=== PATIENT | female | born 1950 | race Caucasian/White ===

== ENCOUNTER 2022-07-23 04:48 | Inpatient (IN) | payer MEDICAID, OTHER ==
[~2022-07-23] VITALS: Ht 154.9 cm; Wt 74.6 kg
[2022-07-23 05:57] LABS: BASOPHILS % 0.4 % (0.0-2.0); EOSINOPHILS % 0.1 % (0.0-5.0); HEMATOCRIT. 34.7 % (36.0-48.0); HEMOGLOBIN. 11.7 g/dL (12.0-16.0); LYMPHOCYTES % 18.7 % (20.0-50.0); MEAN CORPUSCULAR HEMOGLOBIN 31.3 pg (28.0-32.0); MEAN PLATELET VOLUME 9.1 fl (7.4-10.4); MONOCYTES % 10.3 % (2.0-8.0); NEUTROPHILS % 70.5 % (40.0-76.0); PLATELET 419 x1000/uL (130-400); RED BLOOD CELL COUNT 3.73 mill/uL (4.2-5.4)
[2022-07-23 06:02] LABS: CHLORIDE 109 mEq/L (98-107); INR 0.9; PROTHROMBIN TIME 9.8 sec (9.6-11.0)
[2022-07-23 06:12] LABS: CREATINE KINASE 578 IU/L (26-192); ETHANOL BLOOD < 10 mg/dL
[2022-07-23 06:30] LABS: CLARITY URINE CLEAR (CLEAR); COLOR URINE YELLOW (YELLOW); KETONES URINE NEGATIVE (NEGATIVE); LEUKOCYTE ESTERASE URINE 1+ (NEGATIVE); NITRITE URINE NEGATIVE (NEGATIVE); OCCULT BLOOD URINE NEGATIVE (NEGATIVE); PH URINE 5.5 (4.5-8.0); PROTEIN URINE NEGATIVE (NEGATIVE); SPECIFIC GRAVITY URINE 1.017 (1.005-1.030); UROBILINOGEN URINE 0.2 E.U./dL (0.2-1.0)
[2022-07-23] MEDS ORDERED: ASPIRIN 325MG EC TABLET PO ONE (06:30)
[2022-07-23] MEDS ORDERED: SODIUM CHLORIDE 0.9% 500 ML IV SCH (06:30)
[2022-07-23] MEDS ORDERED: IOHEXOL-350 100 ML BOTTLE ONE (06:36)
[2022-07-23 07:00] LABS: *AMPHETAMINES SCREEN URINE NEGATIVE (NEGATIVE); *BARBITURATES SCREEN URINE NEGATIVE (NEGATIVE); *BENZODIAZEPINES SCREEN URINE NEGATIVE (NEGATIVE); *COCAINE SCREEN URINE NEGATIVE (NEGATIVE); CANNABINOID URINE SCREEN NEGATIVE (NEGATIVE); METHADONE URINE SCREEN NEGATIVE (NEGATIVE); OPIATES URINE SCREEN NEGATIVE (NEGATIVE); PHENCYCLIDINE URINE SCREEN NEGATIVE (NEGATIVE)
[2022-07-23] MEDS ORDERED: METOCLOPRAMIDE HCL 10MG/2ML VIAL IV ONE (07:45)
[2022-07-23] MEDS ORDERED: SODIUM CHLORIDE 0.9% 250 ML IV ONE (12:30)
[2022-07-23] MEDS ORDERED: ONDANSETRON HCL 4MG/2ML INJ IV PRN (12:45)
[2022-07-23 15:45] VITALS: BP 131/49
[2022-07-23 15:50] VITALS: BP 131/49
[2022-07-23] MEDS: ACETAMINOPHEN 325MG TABLET PO PRN (17:22)
[2022-07-23] MEDS: ENOXAPARIN 40MG/0.4ML SYR SUBCUT SCH (17:22)
[2022-07-23] MEDS ORDERED: MIDODRINE HCL 2.5MG TABLET PO NR (18:44)
[2022-07-23] MEDS ORDERED: SODIUM CHLORIDE 0.9% 500 ML IV ONE (18:45)
[2022-07-23] MEDS ORDERED: MIDODRINE HCL 5MG TABLET PO SCH (19:00)
[2022-07-23 20:00] VITALS: BP 92/38
[2022-07-23] MEDS: CEFTRIAXONE 1GM PREMIX 50 ML IV SCH (20:00)
[2022-07-23] MEDS: DEXT 5%/0.45% NACL 1000ML 1,000 ML IV SCH (21:36)
[2022-07-23] MEDS ORDERED: DEXTROSE 50% WATER 50ML SYRINGE IV PRN (23:15)
[2022-07-24] VITALS: BP 123/45
[2022-07-24 04:00] VITALS: BP 95/48
[2022-07-24 04:16] LABS: BG BASE EXCESS -2.1 mmol/L (-2.0-2.0); BG CARBOXYHEMOGLOBIN 0.1 % (0.5-1.5); BG DEOXYHEMOGLOBIN 3.8 % (0.0-5.0); BG FRACTION INSPIRED OXYGEN 21; BG HCO3 ACT 22.8 mmol/L (22.0-26.0); BG METHEMOGLOBIN 0.1 % (0.0-1.5); BG OXYGEN SATURATION 96.2 % (92.0-98.5); BG PCO2 39.5 mmHg (35.0-45.0); BG PH 7.379 (7.350-7.450); BG PO2 85.4 mmHg (75.0-100.0); BG SAMPLE SITE RIGHT RADIAL; BG TOTAL HEMOGLOBIN 11.3 g/dL (12.0-18.0); BG VENT MODE ROOM AIR
[2022-07-24] MEDS ORDERED: BLOOD SUGAR DIAGNOSTIC STRIP TEST SCH (06:40)
[2022-07-24] MEDS ORDERED: INSULIN LISPRO 100 UNITS/ML SUBCUT SCH (07:10)
[2022-07-24 08:00] VITALS: BP 121/43
[2022-07-24] MEDS: DEXT 5%/0.45% NACL 1000ML 1,000 ML IV SCH ×2 (08:20→21:23)
[2022-07-24] MEDS: ASPIRIN 81MG TABLET PO SCH (09:28)
[2022-07-24] MEDS: MIDODRINE HCL 5MG TABLET PO SCH ×3 (09:30→16:52)
[2022-07-24] MEDS ORDERED: DEXTROSE 50% WATER 50ML SYRINGE IV PRN (10:45)
[2022-07-24] MEDS: ACETAMINOPHEN 325MG TABLET PO PRN (10:59)
[2022-07-24] MEDS: BLOOD SUGAR DIAGNOSTIC STRIP TEST SCH ×3 (11:39→21:22)
[2022-07-24] MEDS: INSULIN LISPRO 100 UNITS/ML SUBCUT SCH ×3 (11:39→21:24)
[2022-07-24 12:00] VITALS: BP 111/38
[2022-07-24] MEDS: POLYVINYL ALCOHOL OPHTH DROPS 15ML LEFTEYE SCH ×3 (13:43→21:23)
[2022-07-24] MEDS: ENOXAPARIN 40MG/0.4ML SYR SUBCUT SCH (13:44)
[2022-07-24 16:00] VITALS: BP 135/40
[2022-07-24 20:00] VITALS: BP 111/47
[2022-07-24] MEDS: CEFTRIAXONE 1GM PREMIX 50 ML IV SCH (21:23)
[2022-07-24 21:58] LABS: BASOPHILS % 1.2 % (0.0-2.0); HEMATOCRIT. 30.4 % (36.0-48.0); HEMOGLOBIN. 10.5 g/dL (12.0-16.0); LYMPHOCYTES % 32.9 % (20.0-50.0); MEAN CORPUSCULAR VOLUME 92.8 fL (81.0-99.0); MEAN PLATELET VOLUME 8.7 fl (7.4-10.4); MONOCYTES % 11.6 % (2.0-8.0); NEUTROPHILS % 53.3 % (40.0-76.0); PLATELET 373 x1000/uL (130-400); RED BLOOD CELL COUNT 3.27 mill/uL (4.2-5.4); RED CELL DISTRIBUTION WIDTH 15.8 % (11.6-14.6)
[2022-07-24 22:02] LABS: CHLORIDE 106 mEq/L (98-107)
[2022-07-25] VITALS: BP 125/49
[2022-07-25] MEDS: POLYVINYL ALCOHOL OPHTH DROPS 15ML LEFTEYE SCH ×6 (00:36→21:28)
[2022-07-25 04:00] VITALS: BP 104/56
[2022-07-25] MEDS: ACETAMINOPHEN 325MG TABLET PO PRN (05:15)
[2022-07-25] MEDS: INSULIN LISPRO 100 UNITS/ML SUBCUT SCH ×4 (06:02→21:32)
[2022-07-25] MEDS: BLOOD SUGAR DIAGNOSTIC STRIP TEST SCH ×4 (06:02→21:33)
[2022-07-25 07:05] LABS: BASOPHILS % 0.9 % (0.0-2.0); EOSINOPHILS % 1.3 % (0.0-5.0); HEMATOCRIT. 29.9 % (36.0-48.0); HEMOGLOBIN. 10.4 g/dL (12.0-16.0); LYMPHOCYTES % 30.4 % (20.0-50.0); MEAN CORPUSCULAR VOLUME 91.7 fL (81.0-99.0); MEAN PLATELET VOLUME 9.7 fl (7.4-10.4); MONOCYTES % 11.5 % (2.0-8.0); NEUTROPHILS % 55.9 % (40.0-76.0); PLATELET 294 x1000/uL (130-400); RED BLOOD CELL COUNT 3.26 mill/uL (4.2-5.4); RED CELL DISTRIBUTION WIDTH 15.9 % (11.6-14.6)
[2022-07-25 07:35] LABS: CHLORIDE 107 mEq/L (98-107)
[2022-07-25 07:51] LABS: HDL CHOLESTEROL 57 mg/dL (40-59); LDL CHOLESTEROL 123 mg/dL (5-100)
[2022-07-25 08:00] VITALS: BP 126/40
[2022-07-25] MEDS: CLOPIDOGREL 75MG TABLET PO SCH (08:54)
[2022-07-25] MEDS: ASPIRIN 81MG TABLET PO SCH (08:54)
[2022-07-25] MEDS: MIDODRINE HCL 5MG TABLET PO SCH ×3 (08:54→17:02)
[2022-07-25] MEDS ORDERED: POTASSIUM CHLORIDE 20MEQ TABLET SR PO NR (11:30)
[2022-07-25 11:59] VITALS: BP 119/48
[2022-07-25] MEDS: DEXT 5%/0.45% NACL 1000ML 1,000 ML IV SCH (12:03)
[2022-07-25] MEDS: ENOXAPARIN 40MG/0.4ML SYR SUBCUT SCH (12:03)
[2022-07-25 16:00] VITALS: BP 128/47
[2022-07-25] MEDS ORDERED: LACTULOSE 20G/30ML UDC PO PRN (17:15)
[2022-07-25 20:00] VITALS: BP 126/41
[2022-07-25] MEDS: CEFTRIAXONE 1GM PREMIX 50 ML IV SCH (21:27)
[2022-07-26] VITALS: BP 126/66
[2022-07-26] MEDS: POLYVINYL ALCOHOL OPHTH DROPS 15ML LEFTEYE SCH ×4 (00:31→13:44)
[2022-07-26] MEDS: DEXT 5%/0.45% NACL 1000ML 1,000 ML IV SCH ×2 (00:31→13:45)
[2022-07-26 04:00] VITALS: BP 139/45
[2022-07-26] MEDS: BLOOD SUGAR DIAGNOSTIC STRIP TEST SCH ×2 (06:09→11:40)
[2022-07-26] MEDS: INSULIN LISPRO 100 UNITS/ML SUBCUT SCH ×2 (06:09→13:43)
[2022-07-26 08:00] VITALS: BP_SYST 104; BP_SYST 126; BP_DIAS 59; BP_DIAS 66
[2022-07-26] MEDS: MIDODRINE HCL 5MG TABLET PO SCH ×2 (09:00→13:00)
[2022-07-26] MEDS: CLOPIDOGREL 75MG TABLET PO SCH (09:24)
[2022-07-26] MEDS: ASPIRIN 81MG TABLET PO SCH (09:24)
[2022-07-26 12:00] VITALS: BP 118/68
[2022-07-26] MEDS: ENOXAPARIN 40MG/0.4ML SYR SUBCUT SCH (13:41)
[2022-07-26] MEDS ORDERED: MIDO5TAB4 PO (14:07)
[2022-07-26] MEDS ORDERED: ASPI-1160 PO (14:07)
[2022-07-26] MEDS ORDERED: CLOP-31 PO (14:07)
[2022-07-26 16:49] VITALS: BP 118/68
== END 2022-07-26 17:50 | disposition home health service (06) | DRG 45 ==
LOC: ER 04:48 → EDBEDREQSVC 12:20 → EDBEDREQ 12:20 → EDBEDREQTM 12:20 → EDBEDREQ 12:22 → EDBEDREQTM 12:22 → ENRESERV 14:01 → 7EST 15:21
PROVIDERS: ADMIT Internal Medicine; ATTEND Internal Medicine
DX: I63.81 Other cerebral infarction due to occlusion or stenosis of small artery (principal); I21.4 Non-ST elevation (NSTEMI) myocardial infarction; E44.0 Moderate protein-calorie malnutrition; M33.20 Polymyositis, organ involvement unspecified; I10 Essential (primary) hypertension; N39.0 Urinary tract infection, site not specified; I65.23 Occlusion and stenosis of bilateral carotid arteries; E78.5 Hyperlipidemia, unspecified; E11.9 Type 2 diabetes mellitus without complications; R29.709 NIHSS score 9; G51.0 Bell's palsy; R47.01 Aphasia; Z68.31 Body mass index [BMI] 31.0-31.9, adult; Z88.8 Allergy status to other drugs, medicaments and biological substances; Z87.442 Personal history of urinary calculi
CPT/HCPCS: 36415; 36600; 70496; 70498; 70551; 71045; 80048; 80053; 80061; 80305; 80320; 81003; 82140; 82375; 82550; 82805; 82962; 83036; 83605; 84443; 84484; 85025; 92610; 93005; 93306; 97162; 97166; 99291; C1893; J0696; J1650; J1815; J2765; Q9967; G0480

== ENCOUNTER 2022-08-03 13:34 | Inpatient (IN) | payer MEDICAID ==
[~2022-08-03] VITALS: Ht 152.4 cm; Wt 69.1 kg
[~2022-08-03 13:34] MED LIST: ASPI-1160 PO; CLOP-31 PO; MIDO5TAB4 PO
[2022-08-03] MEDS ORDERED: SODIUM CHLORIDE 0.9% 1,000 ML IV ONE (15:30)
[2022-08-03 15:45] LABS: BASOPHILS % 0.7 % (0.0-2.0); EOSINOPHILS % 0.4 % (0.0-5.0); HEMOGLOBIN. 12.2 g/dL (12.0-16.0); LYMPHOCYTES % 28.9 % (20.0-50.0); MEAN CORPUSCULAR HEMOGLOBIN 31.5 pg (28.0-32.0); MEAN PLATELET VOLUME 8.3 fl (7.4-10.4); MONOCYTES % 8.7 % (2.0-8.0); NEUTROPHILS % 61.3 % (40.0-76.0); PLATELET 445 x1000/uL (130-400); RED BLOOD CELL COUNT 3.88 mill/uL (4.2-5.4); RED CELL DISTRIBUTION WIDTH 16.4 % (11.6-14.6)
[2022-08-03 16:01] LABS: CHLORIDE 99 mEq/L (98-107)
[2022-08-03] MEDS ORDERED: ASPIRIN 81MG TABLET PO ONE (16:45)
[2022-08-03 17:44] LABS: CLARITY URINE CLEAR (CLEAR); COLOR URINE YELLOW (YELLOW); KETONES URINE NEGATIVE (NEGATIVE); LEUKOCYTE ESTERASE URINE TRACE (NEGATIVE); NITRITE URINE NEGATIVE (NEGATIVE); OCCULT BLOOD URINE NEGATIVE (NEGATIVE); PROTEIN URINE NEGATIVE (NEGATIVE); UROBILINOGEN URINE 0.2 E.U./dL (0.2-1.0)
[2022-08-03] MEDS ORDERED: CEFTRIAXONE 1GM PREMIX 50 ML IV ONE (18:00)
[2022-08-03] MEDS ORDERED: SODIUM CHLORIDE 0.9% 1000ML BAG (SEPSIS BOLUS) IV ONE (20:00)
[2022-08-03 23:30] VITALS: BP 116/41
[2022-08-04] MEDS ORDERED: ACETAMINOPHEN 325MG TABLET PO PRN (00:15)
[2022-08-04] MEDS ORDERED: DEXTROSE 50% WATER 50ML SYRINGE IV PRN (00:15)
[2022-08-04] MEDS ORDERED: POLYVINYL ALCOHOL OPHTH DROPS 15ML LEFTEYE PRN (00:15)
[2022-08-04] MEDS ORDERED: NON FORMULARY PATIENT HOME MED XX SCH (00:15)
[2022-08-04] MEDS ORDERED: OMEP20CA14 PO (00:28)
[2022-08-04] MEDS ORDERED: SULF1TAB44 PO (00:28)
[2022-08-04] MEDS ORDERED: LISI40TA13 MT (00:28)
[2022-08-04] MEDS ORDERED: LEVVL SQ (00:28)
[2022-08-04] MEDS ORDERED: AMLO5TAB88 MT (00:28)
[2022-08-04] MEDS ORDERED: INSU100I41 SUBCUT (00:28)
[2022-08-04] MEDS ORDERED: LISI20TA31 MT (00:28)
[2022-08-04] MEDS ORDERED: METF-874 MT (00:28)
[2022-08-04] MEDS ORDERED: FISH1CAP34 MT (00:28)
[2022-08-04] MEDS ORDERED: CALC-1249 MT (00:28)
[2022-08-04] MEDS ORDERED: PRED10TA PO (00:28)
[2022-08-04] MEDS ORDERED: ACET-2708 PO (00:28)
[2022-08-04] MEDS ORDERED: MELATONIN 3MG TABLET PO PRN (01:45)
[2022-08-04 05:26] LABS: BASOPHILS % 2.4 % (0.0-2.0); HEMATOCRIT. 31.6 % (36.0-48.0); HEMOGLOBIN. 10.7 g/dL (12.0-16.0); LYMPHOCYTES % 36.4 % (20.0-50.0); MEAN CORPUSCULAR HEMOGLOBIN 31.7 pg (28.0-32.0); MEAN PLATELET VOLUME 8.1 fl (7.4-10.4); MONOCYTES % 12.1 % (2.0-8.0); NEUTROPHILS % 48.1 % (40.0-76.0); PLATELET 346 x1000/uL (130-400); RED BLOOD CELL COUNT 3.37 mill/uL (4.2-5.4); RED CELL DISTRIBUTION WIDTH 15.9 % (11.6-14.6)
[2022-08-04] MEDS: BLOOD SUGAR DIAGNOSTIC STRIP TEST SCH ×4 (06:46→21:23)
[2022-08-04] MEDS: INSULIN LISPRO 100 UNITS/ML SUBCUT SCH ×4 (06:48→21:35)
[2022-08-04] MEDS: OMEPRAZOLE 20MG CAPSULE EXTENDED RELEASE PO SCH (06:48)
[2022-08-04 08:00] VITALS: BP 116/41
[2022-08-04 08:18] LABS: CHLORIDE 108 mEq/L (98-107)
[2022-08-04 08:25] LABS: HDL CHOLESTEROL 60 mg/dL (40-59); LDL CHOLESTEROL 128 mg/dL (5-100)
[2022-08-04] MEDS: HYDROXYCHLOROQUINE SULFATE 200MG TABLET PO SCH ×2 (08:58→17:30)
[2022-08-04] MEDS: PREDNISONE 10MG TABLET PO SCH (08:59)
[2022-08-04] MEDS: CLOPIDOGREL 75MG TABLET PO SCH (08:59)
[2022-08-04] MEDS ORDERED: ASPIRIN 81MG EC TABLET PO SCH (09:00)
[2022-08-04] MEDS: METFORMIN HCL 500MG TABLET PO SCH ×2 (09:00→17:31)
[2022-08-04] MEDS: ENOXAPARIN 30MG/0.3ML SYR SUBCUT SCH (09:02)
[2022-08-04] MEDS: AMLODIPINE 5MG TABLET PO SCH (09:04)
[2022-08-04 11:39] VITALS: BP 114/43
[2022-08-04] MEDS: CALCIUM CARBONATE/VITAMIN D3 500MG TABLET PO SCH ×2 (12:06→17:30)
[2022-08-04] MEDS: INSULIN GLARGINE 100 UNITS/ML SUBCUT SCH ×2 (12:10→21:35)
[2022-08-04 16:00] VITALS: BP 111/45
[2022-08-04 20:00] VITALS: BP 145/89
[2022-08-04] MEDS ORDERED: PNEUMOCOCCAL 23-VAL P-SAC VAC 0.5 ML IM ONE (21:00)
[2022-08-05] VITALS: BP 103/53
[2022-08-05 04:00] VITALS: BP 125/52
[2022-08-05] MEDS: BLOOD SUGAR DIAGNOSTIC STRIP TEST SCH ×3 (05:36→17:11)
[2022-08-05] MEDS: INSULIN LISPRO 100 UNITS/ML SUBCUT SCH ×3 (05:37→17:30)
[2022-08-05] MEDS: OMEPRAZOLE 20MG CAPSULE EXTENDED RELEASE PO SCH (06:30)
[2022-08-05 08:00] VITALS: BP 122/43
[2022-08-05] MEDS ORDERED: ASPIRIN 81MG TABLET PO SCH (09:00)
[2022-08-05] MEDS: AMLODIPINE 5MG TABLET PO SCH (09:13)
[2022-08-05] MEDS: CLOPIDOGREL 75MG TABLET PO SCH (09:13)
[2022-08-05] MEDS: PREDNISONE 10MG TABLET PO SCH (09:13)
[2022-08-05] MEDS: HYDROXYCHLOROQUINE SULFATE 200MG TABLET PO SCH ×2 (09:14→17:26)
[2022-08-05] MEDS: CALCIUM CARBONATE/VITAMIN D3 500MG TABLET PO SCH ×2 (09:14→17:26)
[2022-08-05] MEDS: ENOXAPARIN 30MG/0.3ML SYR SUBCUT SCH (09:14)
[2022-08-05] MEDS: METFORMIN HCL 500MG TABLET PO SCH ×2 (09:14→17:26)
[2022-08-05] MEDS ORDERED: MEROPENEM-0.9% SODIUM CHLORIDE 100 ML IV SCH (11:00)
[2022-08-05 12:00] VITALS: BP 113/30
[2022-08-05] MEDS: INSULIN GLARGINE 100 UNITS/ML SUBCUT SCH (12:02)
[2022-08-05 16:00] VITALS: BP 110/50
[2022-08-05 18:41] VITALS: BP 220/50
[2022-08-05] MEDS ORDERED: NITR-87 MT (18:41)
[2022-08-06] MEDS ORDERED: FAMOTIDINE 20MG TABLET PO SCH (06:40)
== END 2022-08-05 19:05 | disposition home or self-care (01) | DRG 45 ==
LOC: ER 13:34 → MICUSO 21:42 → 7EST 23:47
PROVIDERS: ADMIT Internal Medicine; ATTEND Internal Medicine
DX: I63.89 Other cerebral infarction (principal); E87.1 Hypo-osmolality and hyponatremia; E11.9 Type 2 diabetes mellitus without complications; B96.1 Klebsiella pneumoniae [K. pneumoniae] as the cause of diseases classified elsewhere; E78.00 Pure hypercholesterolemia, unspecified; I10 Essential (primary) hypertension; N39.0 Urinary tract infection, site not specified; Z87.442 Personal history of urinary calculi; Z88.8 Allergy status to other drugs, medicaments and biological substances; Z79.899 Other long term (current) drug therapy
CPT/HCPCS: 36415; 70551; 71045; 80048; 80053; 80061; 81003; 82962; 83036; 83605; 83880; 84484; 85025; 87186; 90732; 93005; 97162; 97530; 99285; J0696; J1650; J1815; J2185; J7030; J7050; J7512

== ENCOUNTER 2022-09-06 09:08 | Emergency (ER) | payer MEDICAID ==
[~2022-09-06] VITALS: Ht 167.6 cm; Wt 82.0 kg
[~2022-09-06 09:08] MED LIST changes: +ACET-2708 PO; +AMLO5TAB88 MT; +CALC-1249 MT; +FISH1CAP34 MT; +INSU100I41 SUBCUT; +LEVVL SQ; +LISI20TA31 MT; +LISI40TA13 MT; +METF-874 MT; +NITR-87 MT; +OMEP20CA14 PO; +PRED10TA PO; +SULF1TAB44 PO
[2022-09-06] MEDS ORDERED: HYDRALAZINE 20MG/ML VIAL IV ONE (09:15)
[2022-09-06] MEDS ORDERED: IOHEXOL-350 100 ML BOTTLE ONE (09:51)
[2022-09-06 09:56] LABS: BASOPHILS % 0.3 % (0.0-2.0); EOSINOPHILS % 0.4 % (0.0-5.0); HEMATOCRIT. 35.2 % (36.0-48.0); LYMPHOCYTES % 42.6 % (20.0-50.0); MEAN CORPUSCULAR HEMOGLOBIN 30.7 pg (28.0-32.0); MEAN CORPUSCULAR VOLUME 90.2 fL (81.0-99.0); MEAN PLATELET VOLUME 9.2 fl (7.4-10.4); MONOCYTES % 10.1 % (2.0-8.0); NEUTROPHILS % 46.6 % (40.0-76.0); PLATELET 343 x1000/uL (130-400)
[2022-09-06 10:04] LABS: CHLORIDE 108 mEq/L (98-107)
[2022-09-06 10:13] LABS: ETHANOL BLOOD < 10 mg/dL
[2022-09-06] MEDS ORDERED: HYDRALAZINE 20MG/ML VIAL IV NR (11:00)
[2022-09-06 11:16] LABS: INR 0.9; PROTHROMBIN TIME 10.2 sec (9.6-11.0)
[2022-09-06] MEDS ORDERED: ACETAMINOPHEN 325MG TABLET PO ONE (11:30)
[2022-09-06 11:40] VITALS: BP 124/44
== END 2022-09-06 11:57 | disposition short-term general hospital (02) ==
LOC: ER 09:08
DX: I63.9 Cerebral infarction, unspecified (principal); I65.22 Occlusion and stenosis of left carotid artery; E11.9 Type 2 diabetes mellitus without complications; I10 Essential (primary) hypertension; Z87.19 Personal history of other diseases of the digestive system; Z79.899 Other long term (current) drug therapy
CPT/HCPCS: 36415; 70450; 70496; 70498; 71045; 80053; 80320; 84484; 85025; 85610; 93005; 96374; 99291; J0360; Q9967; Z7610; G0480